=== PATIENT | female | born 1970 | race Caucasian/White ===

== ENCOUNTER 2021-08-12 06:36 | Outpatient (CLI) | payer OTHER ==
[~2021-08-12] VITALS: Ht 170.2 cm; Wt 121.6 kg
[2021-08-12] MEDS ORDERED: DULA0.75 SQ (14:24)
[2021-08-12] MEDS ORDERED: ENAL20TA16 PO (14:24)
== END 2021-08-12 14:45 | disposition home or self-care (01) ==
LOC: PREOP 06:36
PROVIDERS: ATTEND Internal Medicine
DX: Z01.818 Encounter for other preprocedural examination (principal); Z12.11 Encounter for screening for malignant neoplasm of colon

== ENCOUNTER 2021-08-19 09:35 | Day surgery (SDC) | payer OTHER ==
--- NOTE | 2021-08-14 07:08 | HISTORY AND PHYSICAL ---
DATE OF SERVICE: COLONOSCOPY HISTORY AND PHYSICAL HISTORY OF PRESENT ILLNESS: The patient is a 50-year-old white female being referred by Dr. Montanez and RODNEY Vaughan for first screening colonoscopy. She is deemed to be of average risk as she is not aware of any family history for colon cancer or polyps. She does report a longstanding history of hemorrhoids following childbirth. She will have some intermittent bright red blood per rectum and occasional passage of clots. She denies abdominal pain, change in bowel habit, since Trulicity was initiated about a year ago. She has lost over 30 pounds. PAST MEDICAL HISTORY: Significant for type 2 diabetes mellitus and hypertension. The patient did have rare form of heart failure following delivery of her first child, but this resolved. She had cardiology followup for a year or two but has had no complications since. SURGICAL HISTORY: She has had arthroscopic surgery performed in 2003. FAMILY HISTORY: Father at age 68 of lung cancer, was a smoker, had hyperlipidemia and hypertension. Mother also had lung cancer at the age of 59 and was a smoker. SOCIAL HISTORY: The patient is , one child. Works in the [employer] for a [employer] with no past smoking history and occasional small volume alcohol intake. REVIEW OF SYSTEMS: CONSTITUTIONAL: Denies night sweats, chills, fever. Over 30-pound weight loss since the initiation of Trulicity for diabetes. CARDIOVASCULAR: Denies chest pain, orthopnea, PND or pedal edema. PULMONARY: Denies cough, wheezing or shortness of breath. GASTROINTESTINAL: As noted in the HPI. PHYSICAL EXAMINATION: GENERAL: Reveals pleasant white female in no acute distress. VITAL SIGNS: Weight 268 pounds, blood pressure 146/86, BMI 41. HEENT: Unremarkable. Sclerae nonicteric. CHEST: Clear to auscultation. CARDIOVASCULAR: Reveals regular rate and rhythm without murmur, S3 or S4. ABDOMEN: Soft, supple without mass, organomegaly or tenderness. EXTREMITIES: Reveal no cyanosis, clubbing or edema. ASSESSMENT AND PLAN: The patient is being set up for her first screening colonoscopy. Prep instructions with I believe the plainview prep were given and electronic medical record was reviewed. I thank you for the referral of this pleasant lady. Job ID: [id number] DocumentID: [id number] Dictated Date: 08/11/2021 15:24:52 Waiter/Waitress Take Out Date: 08/11/2021 16:28:14 Dictated By: OTONIEL HERNANDEZ MD
[~2021-08-19] VITALS: Ht 170 cm; Wt 121.6 kg
[~2021-08-19 09:35] MED LIST: DULA0.75 SQ; ENAL20TA16 PO
[2021-08-19] MEDS ORDERED: LACTATED RINGERS 1,000 ML IV STA (09:41)
--- NOTE | 2021-08-19 09:54 | Pre-Op Note & Conscious Sedat ---
Pre-Operative Progress Note H&P Reviewed The H&P was reviewed, patient examined and no changes noted. Date H&P Reviewed: August 19, 2021 Time H&P Reviewed: 09:10 Conscious Sedation Pre-Proced ASA Score 3 For ASA 3 and 4: Consider anesthesia and medical clearance. Also, for patients with a history of failed moderate sedation consider anesthesia. Airway Lungs Heart ASA score ASA 1: a normal healthy patient ASA 2: a patient with a mild systemic disease (mid diabetes, controlled hypertension, obesity ASA 3: a patient with a severe systemic disease that limits activity (angina, COPD, prior Myocardial infarction) ASA 4: a patient with an incapacitating disease that is a constant threat to life (CHF, renal failure) ASA 5: a moribund patient not expected to survive 24 hrs. (ruptured aneurysm) ASA 6: a declared brain- patient whose organs are being harvested. For emergent operations, add the letter E after the classification Mallampati Classification Grade 2 Sedation Plan Analgesia, Amnesia, Plan communicated to team members, Discussed options with patient/fam, Discussed risks with patient/fam The patient is an appropriate candidate to undergo the planned procedure, sedation, and anesthesia. The patient immediately re-assessed prior to indication. OTONIEL HERNANDEZ MD August 19, 2021 09:54
[2021-08-19] MEDS ORDERED: PROPOFOL INJECTION 50 ML IV ONE (09:59)
[2021-08-19] MEDS ORDERED: MIDAZOLAM 2 MG/2 ML (VERSED) VIAL ONE (09:59)
[2021-08-19 10:00] VITALS: BP 165/96
[2021-08-19] MEDS ORDERED: KETAMINE 50 MG/5 ML SYRINGE ONE (10:17)
[2021-08-19 11:00] VITALS: BP 125/68
[2021-08-19 11:20] VITALS: BP 146/71
[2021-08-19 11:42] VITALS: BP 146/71
--- NOTE | 2021-08-19 12:16 | Anesthesia-General Post-Op ---
MAC Patient Condition Mental Status/LOC: Same as Preop Cardiovascular: Satisfactory Nausea/Vomiting: Absent Respiratory: Satisfactory Pain: Controlled Complications: Absent Post Op Complications Complications None Follow Up Care/Instructions Patient Instructions None needed. Anesthesiology Discharge Order Discharge Order Patient is doing well, no complaints, stable vital signs, no apparent adverse anesthesia problems. IESHA OSORIO DO August 19, 2021 12:16
--- NOTE | 2021-08-19 16:07 | OPERATIVE REPORT ---
DATE OF SERVICE: COLONOSCOPY SUMMARY INDICATION FOR THE PROCEDURE: Screening colonoscopy. PROCEDURE: The patient was placed in the left lateral decubitus position. Prior to undergoing colonoscopy, a digital rectal evaluation was performed. Anal sphincter tone was normal and the perianal reflexes were intact. The colonoscope was then inserted into the rectum and under direct visualization advanced to the cecum. The cecum was identified by identification of the ileocecal valve and cecal strap. Photographic documentation was obtained. Quality of the prep was suboptimal with various areas of retained stool, obscuring segments of the transverse colon and sigmoid colon. FINDINGS: There was diffuse colonic erythema and edema with patchy erosions involving the rectum, sigmoid colon, and distal descending colon. There was a sharp line of demarcation. Biopsies from the descending colon, sigmoid colon, and rectum were obtained. Findings are compatible with left-sided ulcerative colitis. No other left-sided colonic abnormalities were appreciated. The remainder of the descending colon, transverse colon, and ascending colon were unremarkable. There was some similar appearing periappendiceal inflammation without evidence for purulence. Biopsy was obtained and submitted for histopathology. The ileocecal valve was unremarkable. ASSESSMENT: Findings compatible with ulcerative colitis, predominantly left-sided involvement with sharp demarcation line at 40 cm from the distal descending colon. Biopsies are pending with further recommendations. The prep was suboptimal as noted above. There was also a small amount of similar appearing periappendiceal inflammation for which there was photographic documentation with an unremarkable terminal ileum. Further recommendations for treatments and likely recommendations for repeat surveillance colonoscopy in 6 to 12 months will be forthcoming. Job ID: [id number] DocumentID: [id number] Dictated Date: 08/19/2021 11:00:26 Director Field Services Date: 08/19/2021 16:07:17 Dictated By: OTONIEL HERNANDEZ MD
== END 2021-08-19 11:30 | disposition home or self-care (01) ==
LOC: ENDO 09:35
PROVIDERS: ATTEND Internal Medicine
DX: Z12.11 Encounter for screening for malignant neoplasm of colon (principal); K52.9 Noninfective gastroenteritis and colitis, unspecified; K62.89 Other specified diseases of anus and rectum; E66.01 Morbid (severe) obesity due to excess calories; E11.9 Type 2 diabetes mellitus without complications; Z68.41 Body mass index [BMI] 40.0-44.9, adult; Z79.84 Long term (current) use of oral hypoglycemic drugs
CPT/HCPCS: 84703; 88305